=== PATIENT | male | born 1955 | race Two or more races ===

== ENCOUNTER → 2017-01-13 | Outpatient (CLI) | payer OTHER ==
[2017-01-14 09:06] LABS: PROSTATE SPECIFIC ANTIGEN 4.3 ng/mL (0.0-4.0); PSA % FREE 16.3 % (.); PSA FREE 0.7 ng/mL
== END ==
LOC: OD 12:43
PROVIDERS: ATTEND Urology
DX: N40.1 Benign prostatic hyperplasia with lower urinary tract symptoms (principal)
CPT/HCPCS: 36415; 84154

== ENCOUNTER → 2017-02-27 | Outpatient (CLI) | payer OTHER | LOC: OD 07:52 | PROVIDERS: ATTEND Urology | DX: E29.1 Testicular hypofunction (principal) | CPT/HCPCS: 36415; 84403 ==

== ENCOUNTER → 2017-10-09 | Outpatient (CLI) | payer OTHER ==
[2017-10-10 08:26] LABS: PROSTATE SPECIFIC ANTIGEN 4.5 ng/mL (0.0-4.0); PSA % FREE 19.6 % (.); PSA FREE 0.88 ng/mL
== END ==
LOC: OD 12:27
PROVIDERS: ATTEND Urology
DX: E29.1 Testicular hypofunction (principal)
CPT/HCPCS: 36415; 84154; 84403

== ENCOUNTER 2020-02-03 05:29 | Observation (INO) | payer OTHER ==
[2020-01-31 11:45] LABS: ABSOLUTE EOSINOPHILS # (AUTO) 0.1 10^3/uL (0.0-0.6); ABSOLUTE LYMPHOCYTES (AUTO) 1.6 10^3/uL (0.5-4.7); ABSOLUTE MONOCYTES (AUTO) 0.4 10^3/uL (0.1-1.4); ABSOLUTE NEUT (AUTO) 3.3 10^3/uL (1.7-8.2); BASOPHILS % (AUTO) 0.6 % (0-2); EOSINOPHILS % (AUTO) 2.4 % (0-6); HEMOGLOBIN 15.1 g/dL (13.5-17.0); LYMPHOCYTES % (AUTO) 29.5 % (13-45); MEAN CORPUSCULAR HEMOGLOBIN 31.7 pg (27.0-33.4); MEAN CORPUSCULAR HGB CONC 34.4 g/dL (32.0-36.0); MEAN CORPUSCULAR VOLUME 92 fl (80-97); MONOCYTES % (AUTO) 7.6 % (3-13); PLATELET COUNT 246 10^3/uL (150-450); RED BLOOD COUNT 4.78 10^6/uL (4.35-5.55); SEGMENTED NEUTROPHILS % (AUTO) 59.9 % (42-78); TOTAL CELLS COUNTED % (AUTO) 100 %; WHITE BLOOD COUNT 5.4 10^3/uL (4.0-10.5)
[2020-01-31 12:10] LABS: ANION GAP 7 (5-19); BLOOD UREA NITROGEN 24 mg/dL (7-20); CALCIUM 9.7 mg/dL (8.4-10.2); CARBON DIOXIDE 27 mmol/L (22-30); CHLORIDE 104 mmol/L (98-107); GLUCOSE 95 mg/dL (75-110); POTASSIUM 4.5 mmol/L (3.6-5.0)
--- NOTE | 2020-02-01 09:32 | EKG REPORT ---
SEVERITY:- BORDERLINE ECG - SINUS RHYTHM BORDERLINE LEFT AXIS DEVIATION BORDERLINE T ABNORMALITIES, INFERIOR LEADS : Confirmed by: Charmaine Jean Baptiste MD 01-Feb-2020 09:32:04
[~2020-02-03 05:29] MED LIST: ACETAMINOPHEN 325 MG TABLET PO PRN; CEFAZOLIN 2 GM/D5W RTU 2 GM/50 ML RTUPB IV PRN; CELECOXIB 200 MG CAPSULE PO PRN; GABAPENTIN 100 MG CAPSULE PO PRN; LACTATED RINGERS 1000 ML IV PRN; ONDANSETRON HCL INJ/PF 4 MG/2 ML SDV IV PRN; OXYCODONE HCL SR 10 MG TABLET PO PRN; SCOPOLAMINE HYDROBROMIDE 1.5 MG PATCH.TD72 TD PRN; TRAMADOL HCL 50 MG TABLET PO PRN; TRANEXAMIC ACID INJ/PF 1,000 MG/10 ML SDV IV PRN; VANCOMYCIN HCL 1,000 MG in DEXTROSE 5%-WATER 250 ML IV PRN
[2020-02-03] MEDS ORDERED: CEFAZOLIN 2 GM/D5W RTU 2 GM/50 ML RTUPB IV ONE (05:57)
[2020-02-03] MEDS ORDERED: ACETAMINOPHEN 325 MG TABLET ONE (05:58)
[2020-02-03] MEDS ORDERED: SCOPOLAMINE HYDROBROMIDE 1.5 MG PATCH.TD72 ONE (05:58)
[2020-02-03] MEDS ORDERED: OXYCODONE HCL SR 10 MG TABLET PO ONE (05:58)
[2020-02-03] MEDS ORDERED: TRAMADOL HCL 50 MG TABLET ONE (05:58)
[2020-02-03] MEDS ORDERED: CELECOXIB 200 MG CAPSULE ONE (05:58)
[2020-02-03] MEDS ORDERED: ONDANSETRON HCL INJ/PF 4 MG/2 ML SDV ONE ×2 (05:58→06:22)
[2020-02-03] MEDS ORDERED: GABAPENTIN 100 MG CAPSULE ONE (05:59)
[2020-02-03] MEDS ORDERED: TRANEXAMIC ACID INJ/PF 1,000 MG/10 ML SDV ONE (06:22)
[2020-02-03] MEDS ORDERED: FENTANYL CITRATE INJ/PF 100 MCG/2 ML AMPUL ONE (06:22)
[2020-02-03] MEDS ORDERED: DEXAMETHASONE SOD PHOSPHATE INJ 4 MG/1 ML VIAL ONE (06:22)
[2020-02-03] MEDS ORDERED: MIDAZOLAM 2 MG/2 ML INJ ONE (06:22)
[2020-02-03] MEDS ORDERED: PROPOFOL INJ 200 MG/20 ML VIAL IV ONE (06:23)
[2020-02-03] MEDS ORDERED: EPINEPHRINE INJ/PF 1 MG/1 ML AMPULE ONE (06:26)
[2020-02-03] MEDS ORDERED: KETOROLAC TROMETHAMINE INJ/PF 30 MG/1 ML SDV ONE (07:10)
[2020-02-03] MEDS ORDERED: LIDOCAINE 1% INJ-PF (10 MG/ML) 30 ML SDV ONE (07:10)
[2020-02-03] MEDS ORDERED: BUPIVACAINE HCL 0.25 % INJ/PF (2.5 MG/1 ML) 30 ML VIAL ONE (07:10)
[2020-02-03] MEDS ORDERED: VANCOMYCIN HCL INJ 1000 MG VIAL ONE (07:10)
[2020-02-03] MEDS ORDERED: MEPERIDINE HCL/PF INJ 25 MG/1 ML DISP.SYRIN IV PRN (08:06)
[2020-02-03] MEDS ORDERED: FENTANYL CITRATE INJ/PF 100 MCG/2 ML AMPUL IV PRN ×3 (08:06)
[2020-02-03] MEDS ORDERED: DIPHENHYDRAMINE HCL 50 MG/ML VIAL IV PRN (08:06)
[2020-02-03] MEDS ORDERED: MORPHINE SULFATE 10 MG/ML INJ IV PRN (08:06)
[2020-02-03] MEDS ORDERED: PROMETHAZINE HCL INJ 25 MG/1 ML VIAL IV PRN ×2 (08:06)
[2020-02-03] MEDS ORDERED: CEFAZOLIN INJ 1 GM VIAL ONE (08:07)
[2020-02-03] MEDS ORDERED: ONDANSETRON HCL INJ/PF 4 MG/2 ML SDV IV PRN (08:12)
[2020-02-03] MEDS ORDERED: LIDOCAINE 0.5% INJ-PF (5 MG/ML) 50 ML SDV ONE (10:23)
--- NOTE | 2020-02-03 10:46 | Operative Report ---
Operative Report DATE OF SURGERY: 02/03/20 PREOPERATIVE DIAGNOSIS: Severe right primary knee osteoarthritis POSTOPERATIVE DIAGNOSIS: Severe right primary knee osteoarthritis OPERATION: Right total knee arthroplasty SURGEON: VIRAJ LEE JR ANESTHESIA: Spinal COMPLICATIONS: none ESTIMATED BLOOD LOSS: 20cc PROCEDURE: Components: [place] tri[employer] press-fit total knee: 8 PS femur, 8 x 9 tibia, and a 40 patella OPERATIVE PROCEDURE: Patient was brought to the operating room and spinal anesthesia was administered. After proper anesthesia was obtained, patient was positioned, padded, prepped, and draped in the usual sterile fashion on the operating room table. 3 grams of Ancef and 1 g of vancomycin were given. Appropriate time out was performed. Anterior incision and medial-parapatella approach was performed. Severe degenerative arthritis was noted. Osteophytes were removed from the femur and tibia, and the remainder of the ACL and PCL were removed. The proximal tibia was then prepared and cut perpendicular to the tibial shaft axis and measured to a 7 tibia. The distal femur was drilled, the canal was irrigated and the distal femoral guide was placed. The distal femur was cut 10 mm to 5 degrees of varus. An extension 9 block was placed in the gap was found to be tight. 2 mm of distal femur was then resected followed by 2 mm of proximal tibia. We replaced the 9 block and found this to be ideal. The tensor was placed in extension and the extension gap was balanced with releases until the goniometer on the tensor measured to 0, in this case no releases were required. The tensor was placed in flexion and the femur was sized to 8. Drill holes were placed to the appropriate femoral rotation. The 4 in 1 block was placed and the flexion gap was then re-checked with a 9 block found to be appropriate. Anterior-posterior and chamfer cuts were made. Posterior osteophytes were removed. The notch cutting guide was placed and the notch was cut. The femoral trial was placed. The combination of the tibial baseplate and the 9 mm polyethylene liner were then placed and the knee was taken through a range of motion with the trials in. This had excellent balance in extension and flexion as well as patellar tracking. The patella AP aspect was measured to 26 mm and the patella was cut parallel to the anterior patella surface. A 48 mm button was placed medially and superiorly as possible and the patella-button construct again measured 28 mm. This was again taken through a range of motion and found to have excellent balance, stability and ease of full motion. Patella was everted in order to fully visualize the baseplate placement. There was adequate room to increase the tibial size to an 8. The tibial component was pinned and drilled and punched. All the trials were then removed and the wound was copiously irrigated with sterile saline followed by a Betadine soak. After pulsatile irrigation of the rosalinda and soft tissue surfaces, the rosalinda surfaces were cleaned and dried. Preoperative discussion with the patient included the plan being press-fit components given his weight and our desire to decrease the subsequent risk of implant loosening. The components were opened and impacted onto a clean dry bone. The patellar component was placed snugly however after a trial reduction was found to be inadequately stable. We removed the patellar component cleaned and dried both the patellar component and the patella and then cemented the patellar component in place subsequently removing all excess cement. We waited for cement to cure. Periarticular injection with Lidocaine, Marcaine and Toradol was performed. The knee was irrigated copiously. A gram of Vancomycin was placed intra-articularly. The extensor mechanism was closed with 0 vicryl tacking sutures and number 2 Stratofix. The subcutaneous tissue was closed with 2-0 monocryl and the skin closed with 3-0 running monocryl. A silver dressing was applied. All needle sponge and instrument counts were correct. Patient was awakened from sedation anesthesia and taken to recovery room in good condition. Viraj Lee DO
--- NOTE | 2020-02-03 11:23 | RADIOLOGY REPORT (SQ) ---
EXAM DESCRIPTION: KNEE RIGHT 2 VIEWS IMAGES COMPLETED DATE/TIME: 02/03/2020 11:07 am REASON FOR STUDY: POST OP PACU M17.11 UNILATERAL PRIMARY OSTEOARTHRITIS, RIGHT KNEE COMPARISON: None. NUMBER OF VIEWS: Two view(s). TECHNIQUE: Digital radiographic images of the right knee post-procedure. LIMITATIONS: None. FINDINGS: BONES: No worrisome or unexpected findings post-procedure. DEVICE: Total knee arthroplasty. SOFT TISSUES: No worrisome findings. Expected postoperative soft tissue changes. IMPRESSION: SATISFACTORY POSTOPERATIVE RIGHT KNEE. TECHNICAL DOCUMENTATION: JOB ID: [id number] 2010 [employer]- All Rights Reserved Reading location - IP/workstation name: [email or web address]
[2020-02-03] MEDS ORDERED: TRAMADOL HCL 50 MG TABLET PO PRN (12:48)
[2020-02-03] MEDS ORDERED: DIPHENHYDRAMINE HCL 25 MG CAPSULE PO PRN (12:55)
[2020-02-03] MEDS ORDERED: ZOLPIDEM TARTRATE 5 MG TABLET PO PRN (12:56)
[2020-02-03] MEDS ORDERED: DOCUSATE SODIUM 100 MG CAPSULE PO PRN (12:57)
[2020-02-03] MEDS ORDERED: NORMAL SALINE 1000 ML 1,000 ML IV PRN (12:57)
[2020-02-03] MEDS ORDERED: ONDANSETRON 4 MG TAB.RAPDIS PO PRN (12:58)
[2020-02-03] MEDS: CEFAZOLIN SODIUM 3 GM in DEXTROSE 5%-WATER 100 ML IV SCH ×2 (14:22→21:42)
[2020-02-03] MEDS: OXYCODONE HCL IR 5 MG TABLET PO PRN ×3 (14:23→17:57)
[2020-02-03] MEDS: KETOROLAC TROMETHAMINE INJ/PF 30 MG/1 ML SDV IV SCH ×2 (14:23→21:42)
[2020-02-03] MEDS: ACETAMINOPHEN 325 MG TABLET PO SCH ×2 (14:23→21:40)
[2020-02-03] MEDS: MORPHINE SULFATE 10 MG/ML INJ IV PRN (15:35)
[2020-02-03] MEDS ORDERED: PANTOPRAZOLE SODIUM 20 MG TABLET.DR PO SCH (17:00)
[2020-02-03] MEDS: GABAPENTIN 100 MG CAPSULE PO SCH (17:09)
[2020-02-03] MEDS: TAMSULOSIN HCL 0.4 MG CAP.SR.24H PO SCH (17:09)
[2020-02-04] MEDS: KETOROLAC TROMETHAMINE INJ/PF 30 MG/1 ML SDV IV SCH ×2 (05:33→14:55)
[2020-02-04] MEDS: ACETAMINOPHEN 325 MG TABLET PO SCH ×3 (05:34→21:35)
--- NOTE | 2020-02-04 07:14 | PDOC PROGRESS REPORT ---
Subjective Progress Note for:: 02/04/20 Subjective:: Patient is doing well this morning. No new complaints overnight. Pain was well controlled with current pain regiment. Was able to walk with physical therapy. Hopeful for discharge today. Reason For Visit: M17.11 UNILATERAL PRIMARY OSTEOARTHRITIS, RIGHT KN Physical Exam Vital Signs: Temp Pulse Resp BP Pulse Ox 98.1 F 62 20 105/59 L 97 02/04/20 03:06 02/04/20 03:06 02/04/20 03:06 02/04/20 03:06 02/04/20 03:06 Intake & Output 02/03/20 02/04/20 02/05/20 06:59 06:59 06:59 Intake Total 0 3377 Output Total 2670 Balance 0 707 Weight 140.16 kg 147 kg Physical Exam: General appearance: PRESENT: no acute distress, cooperative, well-nourished Head exam: PRESENT: atraumatic, normocephalic Eye exam: PRESENT: EOMI Ear exam: PRESENT: normal external ear exam Mouth exam: PRESENT: neck supple Neck exam: ABSENT: tracheal deviation Respiratory exam: PRESENT: symmetrical, unlabored. ABSENT: accessory muscle use, wheezes Pulses: PRESENT: normal radial pulses, normal dorsalis pedis pulse Vascular exam: PRESENT: normal capillary refill GI/Abdominal exam: ABSENT: distended, firm Extremities exam: PRESENT: full ROM of bilateral shoulders, elbows wrists, knees, hips and ankles without pain Musculoskeletal exam: PRESENT: full ROM, normal inspection of all 4 extremities aside from that noted below. Neurological exam: PRESENT: alert, awake, oriented to person, oriented to place, oriented to time Psychiatric exam: PRESENT: appropriate affect. ABSENT: agitated Focused psych exam: ABSENT: catatonic Skin exam: PRESENT: intact. ABSENT: dry All as above aside from that noted in the HPI and the following: Right lower extremity -Pulses 2+ distally -Compartments soft -Sensation grossly intact to L3-4-5 S1 -Motor grossly intact to EHL TA gastroc and quad -Wound is clean dry and intact -Able to perform active straight leg raise with heel off the bed. Results Laboratory Results: 01/31/20 10:52 01/31/20 10:52 02/03/20 06:37 Blood Type O POSITIVE Antibody Screen NEGATIVE Impressions: Knee X-Ray 06/11/20 10:38 IMPRESSION: SATISFACTORY POSTOPERATIVE RIGHT KNEE. Assessment & Plan - Diagnosis (1) Status post total knee replacement, right Is this a current diagnosis for this admission?: Yes Plan: - 2 doses of Ancef postoperatively q 8 hours to complete 24 hours perioperatively -Weightbearing as tolerated, no precautions, encourage out of bed EMILY for ADL training - PT/OT - Keep knee extended in bed, rolled towel under the ankle to obtain full extension -aspirin 325 daily for DVT prophylaxis for 6 weeks -multimodal pain management to avoid excessive narcotics, including gabapentin, tramadol, Toradol, acetaminophen. -Dressing should not be removed for 7 to 10 days until seen in the office -May shower with the dressing intact, if it starts to come off she should not get the incision wet. -I would like to follow the patient my office within the next 7 to [address] at [address] [place] [address]. in [place] office #: [phone] - Time Time Spent with patient: Less than 15 minutes
--- NOTE | 2020-02-04 07:20 | PDOC DISCHARGE SUMMARY ---
Impression - Admit/DC Date/PCP Admission Date/Primary Care Provider: 02/03/20 19:36 Discharge Date: 02/04/20 - Discharge Diagnosis (1) Status post total knee replacement, right Is this a current diagnosis for this admission?: Yes - Assessment Summary: Mr. Juarez is a very pleasant 64-year-old male who presented to my clinic with chronic right knee pain that is been going on for over a year. After thorough work-up and attempts at conservative treatment including activity modification and [id number] pain medication, they were having severe difficulty with ambulation and was over the counter pain medication for daily activity. They found the pain debilitating and decreasing thier quality of life as they were unable to perform activities of daily living such as ambulating short distances and getting in and out of the car. After a thorough work-up including x-rays that demonstrated joint space narrowing, [id number] contact, subchondral sclerosis, and osteophyte formation as well as discussing risks and benefits and other treatment options, the patient elected to proceed with a right total knee arthroplasty. They were brought to the operating room on 02/03/2020 and underwent a right total knee arthroplasty and tolerated procedure very well with out complication. They were then admitted to the hospital floor for postoperative medical management, monitoring, and pain control. On postoperative day #1 they were ambulating well with physical therapy, to the degree that they approved them for discharge home. They were discharged home on []. They had no acute events or complications over the course of their stay. All detailed instructions and prescriptions were provided to the patient prior to admission on the year prior office visit. - Additional Information Resuscitation Status: Full Code Discharge Diet: As Tolerated Discharge Activity: Activity As Tolerated, No Driving, Keep Legs Elevated, No Lifting Over 10 Pounds, Slowly Increase Activity, No tub bath, Walk Frequently Home Medications: Tamsulosin HCl 0.4 mg PO DAILY 10/06/15 Sildenafil Citrate 100 mg PO ASDIR PRN 02/03/20 Triamterene/Hydrochlorothiazid [Triamterene-Hctz 37.5-25 mg Tb] 1 tab PO DAILY 02/03/20 Acetaminophen [Tylenol 325 mg Tablet] 975 mg PO Q8 tablet 02/04/20 Aspirin [Aspirin 325 mg Tablet] 325 mg PO DAILY tablet 02/04/20 Celecoxib [Celebrex 200 mg Capsule] 200 mg PO DAILY capsule 02/04/20 Diphenhydramine HCl [Benadryl 25 mg Capsule] 25 mg PO Q6HP PRN capsule 02/04/20 Docusate Sodium [Colace 100 mg Capsule] 100 mg PO TIDP PRN capsule 02/04/20 Gabapentin [Neurontin 100 mg Capsule] 100 mg PO BID capsule 02/04/20 Oxycodone HCl [Oxy-Ir 5 mg Tablet] 5 mg PO Q4HP PRN tablet 02/04/20 Oxycodone HCl [Oxy-Ir 5 mg Tablet] 10 mg PO Q4HP PRN tablet 02/04/20 Tramadol HCl [Ultram 50 mg Tablet] 50 mg PO Q4HP PRN tablet 02/04/20 History of Present Illiness History of Present Illness: AMY JUAREZ is a 64 year old male Physical Exam Vital Signs: Temp Pulse Resp BP Pulse Ox 98.1 F 62 20 105/59 L 97 02/04/20 03:06 02/04/20 03:06 02/04/20 03:06 02/04/20 03:06 02/04/20 03:06 Intake & Output 02/03/20 02/04/20 02/05/20 06:59 06:59 06:59 Intake Total 0 3377 Output Total 2670 Balance 0 707 Weight 140.16 kg 147 kg Results Laboratory Results: WBC 5.4 10^3/uL (4.0-10.5) 01/31/20 10:52 RBC 4.78 10^6/uL (4.35-5.55) 01/31/20 10:52 Hgb 15.1 g/dL (13.5-17.0) 01/31/20 10:52 Hct 44.0 % (37.9-51.0) 01/31/20 10:52 MCV 92 fl (80-97) 01/31/20 10:52 MCH 31.7 pg (27.0-33.4) 01/31/20 10:52 MCHC 34.4 g/dL (32.0-36.0) 01/31/20 10:52 RDW 14.0 % (11.5-14.0) 01/31/20 10:52 Plt Count 246 10^3/uL (150-450) 01/31/20 10:52 Lymph % (Auto) 29.5 % (13-45) 01/31/20 10:52 [place] % (Auto) 7.6 % (3-13) 01/31/20 10:52 Eos % (Auto) 2.4 % (0-6) 01/31/20 10:52 Baso % (Auto) 0.6 % (0-2) 01/31/20 10:52 Absolute Neuts (auto) 3.3 10^3/uL (1.7-8.2) 01/31/20 10:52 Absolute Lymphs (auto) 1.6 10^3/uL (0.5-4.7) 01/31/20 10:52 Absolute Monos (auto) 0.4 10^3/uL (0.1-1.4) 01/31/20 10:52 Absolute Eos (auto) 0.1 10^3/uL (0.0-0.6) 01/31/20 10:52 Absolute Basos (auto) 0.0 10^3/uL (0.0-0.2) 01/31/20 10:52 Seg Neutrophils % 59.9 % (42-78) 01/31/20 10:52 Sodium 138.1 mmol/L (137-145) 01/31/20 10:52 Potassium 4.5 mmol/L (3.6-5.0) 01/31/20 10:52 Chloride 104 mmol/L (98-107) 01/31/20 10:52 Carbon Dioxide 27 mmol/L (22-30) 01/31/20 10:52 Anion Gap 7 (5-19) 01/31/20 10:52 BUN 24 mg/dL (7-20) H 01/31/20 10:52 Creatinine 1.03 mg/dL (0.52-1.25) 01/31/20 10:52 Est GFR ( Amer) > 60 (>60) 01/31/20 10:52 Est GFR (MDRD) Non-Af > 60 (>60) 01/31/20 10:52 Glucose 95 mg/dL (75-110) 01/31/20 10:52 Calcium 9.7 mg/dL (8.4-10.2) 01/31/20 10:52 COVID-19 Source NASOPHARYNGEAL 01/31/20 10:50 COVID-19 (CATY) NOT DETECTED 01/31/20 10:50 Blood Type O POSITIVE 02/03/20 06:37 Antibody Screen NEGATIVE 02/03/20 06:37 Impressions: Knee X-Ray 02/03/20 10:38 IMPRESSION: SATISFACTORY POSTOPERATIVE RIGHT KNEE. Stroke Is this a Stroke Patient?: No Acute Heart Failure - Is this a Heart Failure Patient?: No
[2020-02-04] MEDS: OXYCODONE HCL IR 5 MG TABLET PO PRN ×4 (09:40→14:55)
[2020-02-04] MEDS: GABAPENTIN 100 MG CAPSULE PO SCH ×2 (09:40→18:33)
[2020-02-04] MEDS: POLYETHYLENE GLYCOL 3350 POWDER 17 GM/1 PACKET PO SCH (09:40)
[2020-02-04] MEDS: ASPIRIN 325 MG TABLET PO SCH (09:41)
[2020-02-04] MEDS: TAMSULOSIN HCL 0.4 MG CAP.SR.24H PO SCH ×2 (09:41→18:34)
[2020-02-04] MEDS: MORPHINE SULFATE 10 MG/ML INJ IV PRN ×2 (10:12→23:03)
[2020-02-05] MEDS: ACETAMINOPHEN 325 MG TABLET PO SCH (05:17)
[2020-02-05] MEDS: OXYCODONE HCL IR 5 MG TABLET PO PRN ×2 (05:18→09:12)
--- NOTE | 2020-02-05 07:27 | PDOC PROGRESS REPORT ---
Subjective Progress Note for:: 02/05/20 Subjective:: Patient is doing well this morning. Pain is improved. Did have urinary retention. He reports that this occasionally happens but usually when he wakes up and starts walking around during the day his urinary retention improves. He is been on half of his dose of Flomax since in the hospital. Reason For Visit: M17.11 UNILATERAL PRIMARY OSTEOARTHRITIS, RIGHT KN Physical Exam Vital Signs: Temp Pulse Resp BP Pulse Ox 98.1 F 76 16 121/62 94 02/05/20 04:00 02/05/20 04:00 02/05/20 04:00 02/05/20 04:00 02/05/20 04:00 Intake & Output 02/04/20 02/05/20 02/06/20 06:59 06:59 06:59 Intake Total 3377 1773 Output Total 2670 4575 Balance 707 -682 Weight 147 kg 147.4 kg Physical Exam: No changes of a prior exam. Right lower extremity is neurovascular intact. Dressing is clean dry and intact. Results Laboratory Results: 01/31/20 10:52 01/31/20 10:52 Impressions: Knee X-Ray 02/03/20 10:38 IMPRESSION: SATISFACTORY POSTOPERATIVE RIGHT KNEE. Assessment & Plan - Diagnosis (1) Status post total knee replacement, right Is this a current diagnosis for this admission?: Yes Plan: -Discharge home today. -Urinary retention will likely improve as he ambulates more at home. Additionally as he pulls back on his narcotic use and returns to his normal dose of Flomax -Weightbearing as tolerated, no precautions, encourage out of bed EMILY for ADL training - PT/OT - Keep knee extended in bed, rolled towel under the ankle to obtain full extension -aspirin 325 daily for DVT prophylaxis for 6 weeks -multimodal pain management to avoid excessive narcotics, including gabapentin, tramadol, Toradol, acetaminophen. -Dressing should not be removed for 7 to 10 days until seen in the office -May shower with the dressing intact, if it starts to come off she should not get the incision wet. -I would like to follow the patient my office within the next 7 to [address] days at [address] [place] [address]. in [place] office #: [phone] - Time Time Spent with patient: Less than 15 minutes
[2020-02-05] MEDS: POLYETHYLENE GLYCOL 3350 POWDER 17 GM/1 PACKET PO SCH (09:06)
[2020-02-05] MEDS: ASPIRIN 325 MG TABLET PO SCH (09:06)
[2020-02-05] MEDS: GABAPENTIN 100 MG CAPSULE PO SCH (09:06)
[2020-02-05] MEDS: TAMSULOSIN HCL 0.4 MG CAP.SR.24H PO SCH (09:07)
[2020-02-05 09:14] VITALS: BP 138/68
[2020-02-05] MEDS ORDERED: CELECOXIB 200 MG CAPSULE PO SCH (10:00)
== END 2020-02-05 12:07 | disposition home or self-care (01) ==
LOC: OROUT 05:29 → 3W 12:09 → OROUT 19:34 → 3W 19:36
PROVIDERS: ADMIT Orthopaedic Surgery; ATTEND Orthopaedic Surgery
DX: M17.11 Unilateral primary osteoarthritis, right knee (principal); R33.9 Retention of urine, unspecified; G89.18 Other acute postprocedural pain; Z79.899 Other long term (current) drug therapy; Z03.818 Encounter for observation for suspected exposure to other biological agents ruled out
CPT/HCPCS: 27447; C1776; 01402; 36415; 80048; 85025; 86850; 86900; 86901; 87635; 93005; 93010; C9803; G0378; J0171; J0690; J1100; J1885; J2250; J2270; J2405; J2704; J3010; J3370; J3490; J7060